=== PATIENT | male | born 1965 | race Caucasian/White ===

== ENCOUNTER 2020-02-25 11:49 | Outpatient (REF) | payer OTHER, SELFPAY ==
[2020-02-25 14:11] LABS: Estimated Average Glucose 128 mg/dL; Hemoglobin A1c % 6.1 %
[2020-02-25 15:00] LABS: Creatinine Urine 101.58 mg/dL; Microalbumin Urine < 5.0 mg/L
[2020-02-25 15:04] LABS: Alanine Aminotransferase 24 U/L (0-40); Albumin Level 4.4 g/dL (3.5-5.0); Alkaline Phosphatase 46 U/L (39-117); Anion Gap 11 (12-20); Aspartate Amino Transferase 17 U/L (5-37); Bilirubin Total 0.7 mg/dL (0.0-1.0); Blood Urea Nitrogen 17 mg/dL (9-16); Carbon Dioxide 28 mmol/L (22-29); Chloride 105 mmol/L (96-108); Estimated Glomerular Filt Rate > 60; Glucose Fasting 119 mg/dL (60-99); Potassium 4.3 mmol/l (3.3-5.1); Sodium 140 mmol/L (135-145); Total Protein 6.8 g/dL (6.5-8.0)
== END 2020-02-25 11:50 | disposition home or self-care (01) ==
LOC: HO.WFDLDS 11:49
PROVIDERS: Visit Provider Family Medicine
DX: E11.9 Type 2 diabetes mellitus without complications (principal); Z00.00 Encounter for general adult medical examination without abnormal findings; R03.0 Elevated blood-pressure reading, without diagnosis of hypertension
CPT/HCPCS: 80053; 82043; 83036

== ENCOUNTER 2020-03-15 08:56 | Outpatient (REF) | payer OTHER, SELFPAY ==
--- NOTE | 2020-03-15 09:00 | US_ITS ---
EXAMINATION: US RETROPERITONEAL LIMITED (RENAL ONLY) CLINICAL INFORMATION: Cyst of kidney.. COMPARISON: None TECHNIQUE: Sonographic evaluation of the kidneys. FINDINGS: RIGHT KIDNEY: 12.2 x 5.8 x 6.3 cm (SAG x AP x TRV). The kidney is normal in size, contour, and echogenicity. Renal cortical thickness is normal. No calculi. No hydronephrosis. There are 2 upper pole simple cysts measuring 1.2 cm and 1 cm. LEFT KIDNEY: 12.3 x 7.7 x 6 cm (SAG x AP x TRV). The kidney is normal in size, contour, and echogenicity. Renal cortical thickness is normal. No calculi. No hydronephrosis. There are 2 lower pole simple cyst measuring 5 cm and 1.3 cm. Gallstones are incidentally noted. US/US renal BI IMPRESSION: Bilateral simple renal cysts. Cholelithiasis.
== END 2020-03-15 08:57 | disposition home or self-care (01) ==
LOC: HO.US 08:56
PROVIDERS: PCP Family Medicine; Visit Provider Family Medicine
DX: N28.1 Cyst of kidney, acquired (principal)
CPT/HCPCS: 76775

== ENCOUNTER 2020-06-06 09:41 | Outpatient (REF) | payer OTHER, SELFPAY | END 2020-06-06 09:42 | disposition home or self-care (01) | LOC: HO.LAB 09:41 | PROVIDERS: Visit Provider Internal Medicine | DX: Z20.822 Contact with and (suspected) exposure to COVID-19 (principal) | CPT/HCPCS: 36415; C9803; U0003; U0005 ==

== ENCOUNTER 2023-11-19 15:39 | Outpatient (AMB) | payer OTHER, SELFPAY ==
--- NOTE | 2023-11-19 15:45 | A.OFFPC_ITS ---
Vital Signs 11/19/23 15:52 Height 6 ft 2 in Weight 171 lb 2 oz BMI 22.0 BP 132/82 Blood Pressure Location Rt brachial Position Sitting Respiration 16 Pulse 90 Pulse Source Pulse Oximeter Temp 99.3 F Temp Source Oral Pulse Oximetry (%) 95 Oxygen Delivery Method Room Air Intake Visit Reasons: Re Establish Care/Annual PE Allergies No Known Allergies Allergy (Verified 11/19/23 15:48) Medication List - Last Reconciled 11/19/23 by Constantin Vázquez MD No Known Home Meds Tobacco use date assessed: 11/19/23 Dental Screening Dental Screen Date: 11/19/23 Did you have a dental visit in the last 12 months?: Yes Did you have a dental problem in the last 6 months where you did not have access to dental care?: No Was dental information given to patient?: Patient has dentist HPI Re Establish Care/Annual PE HPI Details New Patient/Re-establish Care ?? Prior PCP: Re-establishing Care? Last office visit/CPE:?2020 Acute issue(s):? Hemorrhoids Back Pain A1c today 11/19/23 7.3%. ?? 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 1. Little interest or pleasure in doing things: more than half the days 2. Feeling down, depressed, or hopeless: not at all 3. Trouble falling or staying asleep, or sleeping too much: more than half the days 4. Feeling tired or having little energy: more than half the days 5. Poor appetite or overeating: not at all 6. Feeling bad about yourself - or that you are a failure or have let yourself or your family down: not at all 7. Trouble concentrating on things, such as reading the newspaper or watching television: not at all 8. Moving or speaking so slowly that other people could have noticed. Or the opposite - being so fidgety or restless that you have been moving around a lot more than usual: not at all 9. Thoughts that you would be better off or of hurting yourself in some way: not at all Total score: 6 Depression Screening Interpretation: Positive Depression Screening Done: Yes 69931 - PHQ-9 Billing: Yes Source: Developed by Drs. Howard Santos, Maylin Longo, Ben Felix and colleagues, with an educational chery from [employer]. Thrive Questionnaire Date Thrive assessed: 11/19/23 I am a: Patient What is your living situation today?: I have a steady place to live Within the past 12 months, did the food you bought not last and you didn't have the money to get more?: Never true Within the past 12 months, did you worry whether your food would run out before you got money to buy more?: Never true Do you have trouble paying for medicines?: No Do you have trouble getting transportation to medical appointments?: No Do you have trouble paying your heating and electricity bill?: No Do you have trouble taking care of your child, family member or friend?: No Do you have trouble with day-to-day activities such as bathing, preparing meals, shopping, managing finances, etc.?: No Are you currently unemployed and looking for a job?: No Are you interested in more education?: No Please select the resources that you would like help with: None Currently or been in a relationship where the following occur: No concerns reported THRIVE Score: 0 AUDIT C Alcohol Use Questionnaire (AUDIT-C) 1. How often do you have a drink containing alcohol?: Monthly or less 2. How many drinks containing alcohol do you have on a typical day when you are drinking?: 1 or 2 3. How often do you have six or more drinks on one occasion?: Never Total Score: 1 TRAVON-7 AMB Questionnaire TRAVON-7 Date TRAVON - 7 assessed: 11/19/23 Feeling nervous, anxious, or on edge: 0 = Not at all Not being able to stop or control worryin = Not at all Worrying too much about different things: 0 = Not at all Trouble relaxin = Not at all Being so restless that it is hard to sit still: 0 = Not at all Becoming easily annoyed or irritable: 0 = Not at all Feeling afraid as if something awful might happen: 0 = Not at all Total TRAVON-7 score (0-4 normal; 5-9 mild; 10-14 moderate; 15-21 severe): 0 Source: Developed by Drs. Howard Santos, Maylin Longo, Ben Felix and colleagues, with an educational chery from [employer]. TRAVON-7 Assessment Billing TRAVON-7 Assessment Tool: TRAVON-7 Assessment 08228 Review of Systems Const Denies chills, Denies fatigue, Denies fever(s), Denies headache(s) and Denies weakness ENT Denies dizziness and Denies headache(s) Card Denies dyspnea Resp Denies cough, Denies dyspnea, Denies wheezing and Denies other (shortness of breath) Musc Denies numbness and Denies tingling Neuro Denies dizziness, Denies headache(s), Denies numbness, Denies tingling and Denies weakness Psych Denies anxiety and Reports depression Endo Denies fatigue Aller/Immun Denies wheezing Physical exam (Primary Care) Vital Signs: Last Vital Signs Temp 99.3 F 11/19/23 15:52 Pulse 90 11/19/23 15:52 Resp 16 11/19/23 15:52 BP 132/82 11/19/23 15:52 Pulse Ox 95 11/19/23 15:52 Oxygen Delivery Method Room Air 11/19/23 15:52 BMI result Body Mass Index 22.0 Tobacco/Smoking Status: Tobacco use Status Tobacco use date assessed 11/19/23 11/19/23 15:56 Patient Tobacco Use Status Former Tobacco user 11/19/23 15:56 e-Cigarette/Vaping Use Never Used 11/19/23 15:56 PHQ-9: PHQ-9 Score PHQ-9: Total score 6 11/19/23 16:03 Depression Screening Interpretation: Positive Thrive Assessment: Date of Thrive Assessment Date Thrive assessed 11/19/23 11/19/23 15:56 Currently or been in a relationship where the following occur: No concerns reported Const General: well developed; No acute distress Nutritional Appearance: well nourished Orientation/consciousness: patient oriented x3 [facility] Head: Yes normocephalic and Yes atraumatic Eyes General: appearance normal, both eyes and all related structures Pupils: Equal, round and reactive pupils present EOM: EOMs intact bilaterally Resp Effort & Inspection: normal respiratory effort Auscultation: clear to auscultation bilaterally Cardio Rate: regular rate Rhythm: regular rhythm Heart sounds: S1 normal heart sound present, S2 normal heart sound present, no gallops, no murmurs and no rubs Neuro General: patient oriented x3 and gait normal Cranial nerves: Yes Equal, round and reactive pupils present Psych Affect: normal affect Assessment and Plan Assessment & Plan (1) Diabetes type 2, controlled: Code(s): E11.9 - Type 2 diabetes mellitus without complications Plan: A1c?now?7.3% Patient?would?like?to?work?lifestyle?changes. We?agreed?that?if?A1c?is?not?improved?at?next?visit?we?should?discuss?m edications?such?as?metformin.??Briefly?discussed?metformin?today. (2) Spinal stenosis, lumbar region with neurogenic claudication: Code(s): M48.062 - Spinal stenosis, lumbar region with neurogenic claudication Plan: Ongoing?low?back?pain?with?neurogenic?claudication?and?radiculitis Will?start?meloxicam We?discussed?that?if?he?is?still?having?difficulty?he?should?consider?a?referral ?to?pain?management Have?use?short?courses?of?opioid?in?the?past. No?recent?imaging Will?follow-up?at?next?visit (3) Mild depression: Code(s): F32.A - Depression, unspecified Plan: PHQ-9?shows?mild?depressive?symptoms.??No?SI?by?PHQ-9 A?we?can?follow?this (4) Hemorrhoid: Code(s): K64.9 - Unspecified hemorrhoids Plan: Large?hemorrhoid?and?patient?has?a?discomfort?and?drainage Referred?to?general?surgery (5) Laboratory exam ordered as part of routine general medical examination: Code(s): Z00.00 - Encounter for general adult medical examination without abnormal findings Plan: Check?labs Orders: Orders Prostate Specific Antigen Scr Today Z12.5 - Encounter for screening for malignant neoplasm of prostate Comprehensive [place]. Panel Fast Today Z00.00 - Encounter for general adult medical examination without abnormal findings Complete Blood Count Auto Diff Today Z00.00 - Encounter for general adult medical examination without abnormal findings Microalbumin, Random (w Creat) Today I10 - Essential (primary) hypertension Lipid Panel Today Z00.00 - Encounter for general adult medical examination without abnormal findings UA and rflx microscopic Today Z00.00 - Encounter for general adult medical examination without abnormal findings TSH reflex Free T4 Today Z00.00 - Encounter for general adult medical examination without abnormal findings Referrals General Surgery Referral K64.9 - Unspecified hemorrhoids Coding Level of Care Code Est Pt Level 4 (26882) Diagnoses Diabetes type 2, controlled E11.9 Spinal stenosis, lumbar region with neurogenic claudication M48.062 Mild depression F32.A Hemorrhoid K64.9 Laboratory exam ordered as part of routine general medical examination Z00.00 Additional Codes TRAVON-7 Assessment Billing - TRAVON-7 Assessment Tool: TRAVON-7 Assessment 49526 ([id number])
[2023-11-19 15:52] VITALS: BP 132/82; PULSE 90; RESP 16; TEMP 37.4; O2SAT 95; BMI 22.0
== END 2023-11-19 16:30 | disposition home or self-care (01) ==
PROVIDERS: PCP Family Medicine; Visit Provider Family Medicine
DX: E11.9 Type 2 diabetes mellitus without complications (principal); M48.062 Spinal stenosis, lumbar region with neurogenic claudication; F32.A Depression, unspecified; K64.9 Unspecified hemorrhoids
CPT/HCPCS: 99214

== ENCOUNTER 2023-12-03 13:56 | Outpatient (AMB) | payer OTHER, SELFPAY ==
--- NOTE | 2023-12-03 13:57 | A.OFFVIS_ITS ---
Vital Signs 12/03/23 14:03 Height 6 ft 2 in Weight 233 lb BMI 29.9 BP 159/80 H Blood Pressure Location Rt brachial Position Sitting Pulse 88 Intake Visit Reasons: Hemorrhoids Intake Note: Patient referred by pcp Dr. Vzáquez for hemorrhoids. Present for 1yr Patient c/o: irritated, bothersome. Quill Buncher And Sorter Required: No Accompanied by: Self / Same As Patient Allergies No Known Allergies Allergy (Verified 12/03/23 14:01) HPI Comments Details: Patient presents for evaluation of symptomatic hemorrhoids. It has been going on for few years time he has had bleeding and swelling. He has not had much pain. Patient otherwise has regular bowel habits. He has not noticed any change in the caliber stool. He has no other issues regarding energy, weight, or appetite. He has never had colonoscopy however. 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 Rectal exam demonstrates a very large external hemorrhoid. Rectal exam demonstrated no obvious masses, prostate enlarged and smooth. No stool for guaiac was available. Assessment & Plan Assessment & Plan (1) Hemorrhoid: Code(s): K64.9 - Unspecified hemorrhoids Category: Surgical Plan Risks, benefits, alternatives of hemorrhoidectomy and proctoscopy were reviewed with the patient and included but not limited to bleeding, infection, recurrence, numbness, pain, scarring, incontinence the patient wished to proceed. Once the above-mentioned issue has been resolved. I recommended the patient undergo formal colonoscopy. Patient states that his medical doctors also been strongly encouraged him to do so. This will be addressed after the above-mentioned procedure has been completed and the patient is fully convalesced. Coding Level of Care Code New Pt Level 5 (24952) Diagnoses Hemorrhoid K64.9
[2023-12-03 14:03] VITALS: BP 159/80; PULSE 88; BMI 29.9
== END 2023-12-03 14:39 | disposition home or self-care (01) ==
PROVIDERS: PCP Family Medicine; Referring Provider Family Medicine; Visit Provider Surgery
DX: K64.9 Unspecified hemorrhoids (principal)
CPT/HCPCS: 99204

== ENCOUNTER → 2023-12-03 13:56 | Outpatient (BNVA) | payer OTHER, SELFPAY | PROVIDERS: PCP Family Medicine; Referring Provider Family Medicine; Visit Provider Surgery ==

== ENCOUNTER 2024-02-06 06:48 | Day surgery (SDC) | payer OTHER, SELFPAY ==
[2024-02-04 09:39] VITALS: BMI 22.0
--- NOTE | 2024-02-05 08:35 | HO.ANESPROP2 ---
Documented by User: Elsy Kohler NP 02/05/24 08:36 HPI - Anesthesia Eval Consult details Narrative: 58yo M for Proctoscopy,Hemorrhoidectomy DM: Per 10/2023 PCP visit, pt will attempt to bring A1C down to <7% before next visit with diet control only. If unable to meet goal, will start on metformin. PMFSH Active Problems Active Problems: All Active Problems Hemorrhoid (Acute) Mild depression (Acute) Laboratory exam ordered as part of routine general medical examination (Acute) Left knee pain (Acute) Renal cyst (Acute) Diabetes type 2, controlled (Acute) Cyst of kidney, acquired (Acute) Unsteadiness on feet (Acute) Right leg weakness (Acute) Spinal stenosis, lumbar region with neurogenic claudication (Acute) Past Medical History Medical History (Updated 02/05/24 @ 09:20 by Janay Phillips RN) Cough (02/05/24) Unsteady gait Diabetes Renal cyst Depression Left knee pain Right leg weakness Spinal stenosis Surgical History Surgical History (Updated 02/05/24 @ 09:14 by Janay Phillips RN) Hx of bilateral cataract extraction Social History Social History (Updated 02/05/24 @ 09:14 by Janay Phillips RN) Household Members: Family Housing: House Are you a primary account executive healthcare to a significant other at home: No Do you presently have visiting nurse or other home services: No Patient Tobacco Use Status: Former Tobacco user Tobacco use type: Cigarette Cigarette Packs Per Day: 0.5 Years Smoked: 30 Smoked in Last 30 Days: No e-Cigarette/Vaping Use: Never Used Second Hand Smoke Exposure: No Use of substances other than those prescribed or required for medical reasons: Yes Substance Use Type: Marijuana Substance Use Type Other:: edible Substance Use Frequency: Occasionally Have you been hit, kicked, punched, or otherwise hurt by someone within the past year? 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 Current occupational exposures/hazards: No Cognitive needs: No Hearing needs: No Vision needs: No Meds Allergies Allergy/AdvReac Type Severity Reaction Status Date / Time No Known Allergies Allergy Verified 02/06/24 07:04 Home Medications ?Medication ?Instructions ?Recorded ?Confirmed ?Last Taken ?Type Miralax 02/05/24 02/05/24 02/05/24 History Exam Height,Weight and Vital Signs: Height 6 ft 2 in Weight 77.621 kg Assessment and Plan Assessment Anesthesia Assessment: Chart Reviewed Documented by User: Barak Larios MD 02/06/24 08:32 [facility] Past Medical History Medical History (Updated 02/05/24 @ 09:20 by Janay Phillips RN) Cough (02/05/24) Unsteady gait Diabetes Renal cyst Depression Left knee pain Right leg weakness Spinal stenosis Family History Family history of problems with anesthesia: No Surgical History Surgical History (Updated 02/05/24 @ 09:14 by Janay Phillips RN) Hx of bilateral cataract extraction History of Problems with Anesthesia: No Social History Social History (Updated 02/05/24 @ 09:14 by Janay Phillips RN) Household Members: Family Housing: House Are you a primary account executive healthcare to a significant other at home: No Do you presently have visiting nurse or other home services: No Patient Tobacco Use Status: Former Tobacco user Tobacco use type: Cigarette Cigarette Packs Per Day: 0.5 Years Smoked: 30 Smoked in Last 30 Days: No e-Cigarette/Vaping Use: Never Used Second Hand Smoke Exposure: No Use of substances other than those prescribed or required for medical reasons: Yes Substance Use Type: Marijuana Substance Use Type Other:: edible Substance Use Frequency: Occasionally Have you been hit, kicked, punched, or otherwise hurt by someone within the past year? 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 Current occupational exposures/hazards: No Cognitive needs: No Hearing needs: No Vision needs: No Meds Allergies Allergy/AdvReac Type Severity Reaction Status Date / Time No Known Allergies Allergy Verified 02/06/24 07:04 Home Medications ?Medication ?Instructions ?Recorded ?Confirmed ?Last Taken ?Type Miralax 02/05/24 02/05/24 02/05/24 History Exam Airway Mallampati Class: I TM Dist: <=3cm Neck ROM: Full Loose/Missing/Broken Teeth: No Heart: ok Lungs: ok Assessment and Plan Assessment Anesthesia Assessment: Anesthesia Plan Discussed Final Anesthetic Review Family History of Problems with Anesthesia: No History of Problems with Anesthesia: No NPO: Yes ASA Class: II Final Preanesthetic Review: No Changes in Pt Med Stat, Meds/Allgs Chart Reviewed, Consent Obtained/Reviewed and Anes Risks/Benef Reviewed Patient Risk: Intermediate Procedure Risk: Low Anesthetic Plan Anesthetic Plan: GA and Agree w/ Assess. and Plan Disposition: Standard PACU
[2024-02-05 09:16] VITALS: BMI 29.5
--- NOTE | 2024-02-05 09:20 | MHC.SHP ---
Pre-Procedural Eval Section A - 24 Hr Update-Section A only Date of Service: 02/06/24 The patient is an INPATIENT: No Changes since office visit: No Cold of Flu in the past 2 weeks, No New Medical Problems, No Changes in Medication and No Patient answered all questions Section B - Complete if H&P > 30 days Chief Complaint: Unspecified hemorrhoids Allergies: Allergies Allergy/AdvReac Type Severity Reaction Status Date / Time No Known Allergies Allergy Verified 02/05/24 09:15 Review of Systems Sugical H&P ROS: Negative: Constitution, Cardiovascular, Respiratory, Neurological, Psychiatric, Hem-Onc, Allergic/Immunologic, Gastrointestinal, Genitourinary, Musculoskeletal, Integumentary, Endocrine and Eyes/Ears/Nose/Throat Exam Surgical H&P Exam: Normal: HEENT, Normal: Heart, Normal: Lungs, Normal: Extremities, Normal: Abdomen, Normal: Skin and Normal: Neurological Plan I have reviewed the history and physical and performed a pertinent physical examination on my patient. No changes have occurred unless specified. Time Spent With Patient Time: Total time managing care of this patient today ____ minutes.
[2024-02-06 07:06] VITALS: BMI 29.1
[2024-02-06 07:28] LABS: Glucose, Whole Blood 205 mg/dL (60-115)
[2024-02-06] MEDS: Lactated Ringers 1,000 ML 100 ML IVCONT (07:40)
[2024-02-06 08:00] VITALS: BP 136/91; PULSE 90; RESP 14; TEMP 36.3; O2SAT 97
--- NOTE | 2024-02-06 09:04 | P.OP_ITS ---
Operative Note Operative Note Date of Service: 02/06/24 Narrative: Preoperative diagnosis: [] Symptomatic large internal and external hemorrhoids Postop diagnosis: [] The same Procedure [] hemorrhoidectomy internal and external Surgeon: [] Param Staple Shear Operator: [] Type of Anesthesia: [] LMA Indication for surgery: [] Patient has a massive 7 o'clock position external with associated internal hemorrhoid and smaller external and internal hemorrhoids on the 4 o'clock position lithotomy Findings: [] Patient brought to the operating room, placed on operative table in supine position, after an adequate level of LMA anesthesia was induced, the patient's anorectal area was prepped and draped in usual sterile fashion. Using ligature device, double firing of the massive left lower quadrant hemorrhoid was sequentially performed and specimen sent to pathology. Wound defect was cl osed using running locking 2-0 chromic suture. Smaller right lower quadrant hemorrhoids were similarly excised with double firing of ligature device. Wounds were irrigated, secured hemostasis, infiltrated with 0.5% Marcaine/1% lidocaine, sterile dressing followed by ABD pad and mesh underpants were placed. Sponge, needle, and instrument counts were reported correct. Patient tolerated the procedure well and emerged from anesthesia stable condition. EBL minimal
[2024-02-06 09:13] VITALS: BP 144/78; PULSE 82; RESP 18; TEMP 36.1; O2SAT 93
[2024-02-06 09:18] VITALS: BP 119/74; PULSE 80; RESP 18; O2SAT 94
[2024-02-06 09:23] VITALS: BP 147/90; PULSE 81; RESP 18; O2SAT 95
[2024-02-06 09:28] VITALS: BP 131/75; PULSE 79; RESP 18; O2SAT 95
[2024-02-06] MEDS: oxyCODONE HCl Immed Release 5 MG TABLET PO (09:34)
[2024-02-06 09:43] VITALS: BP 124/80; PULSE 79; RESP 16; TEMP 36.1; O2SAT 96
== END 2024-02-06 10:21 | disposition home or self-care (01) ==
PROVIDERS: PCP Family Medicine; Visit Provider Surgery
PROC: (CPT 46946; principal; 2024-02-06 08:40)
DX: K64.8 Other hemorrhoids (principal); K64.4 Residual hemorrhoidal skin tags; Z87.891 Personal history of nicotine dependence; E11.9 Type 2 diabetes mellitus without complications; Z79.899 Other long term (current) drug therapy
CPT/HCPCS: 46946; 82947; 88304; J0690; J2003; J2704; J2795; J3010

== ENCOUNTER → 2024-02-06 06:48 | Outpatient (BNV) | payer OTHER, SELFPAY | PROVIDERS: PCP Family Medicine; Visit Provider Surgery | DX: K64.8 Other hemorrhoids (principal) | CPT/HCPCS: 46255 ==

== ENCOUNTER 2024-02-19 08:57 | Outpatient (AMB) | payer OTHER, SELFPAY ==
--- NOTE | 2024-02-19 09:03 | MHC.OFFVIS ---
Intake Visit Reasons: S/P hemorrhoidectomy Intake Note: Patient here s/o hemorrhoidectomy on 02-06-24. Patient c/o: pain, oozing blood, yellowish discharge. Still taking pain meds as needed. Medical Apparatus Model Maker Required: No Accompanied by: Self / Same As Patient Allergies No Known Allergies Allergy (Verified 02/19/24 09:04) HPI Comments Details: Patient was status post hemorrhoidectomy. Anal/incisional discomfort is improving. He is tolerating diet. Having regular bowel habits. He is increasing his activity level. He has returned to work. [facility] Medical History (Updated 02/05/24 @ 09:20 by Janay Phillips, RN) Cough (02/05/24) Unsteady gait Diabetes Renal cyst Depression Left knee pain Right leg weakness Spinal stenosis Surgical History (Updated 02/19/24 @ 09:16 by Dejon Virgen MD) History of hemorrhoidectomy (02/06/24) Hx of bilateral cataract extraction Social History (Updated 02/05/24 @ 09:14 by Janay Phillips RN) Household Members: Family Housing: House Are you a primary physician assistant primary care to a significant other at home: No Do you presently have visiting nurse or other home services: No 75 years or older and lives alone: No Patient Tobacco Use Status: Former Tobacco user Tobacco use type: Cigarette Cigarette Packs Per Day: 0.5 Years Smoked: 30 e-Cigarette/Vaping Use: Never Used Second Hand Smoke Exposure: No Substance Use Type: Marijuana service: Yes Current occupational status: employed 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 Hemorrhoid wound healing uneventfully Assessment & Plan Assessment & Plan (1) Status post hemorrhoidectomy: Code(s): Z98.890 - Other specified postprocedural states; Z87.19 - Personal history of other diseases of the digestive system Category: Medical Plan Patient was to continue local wound care and analgesics as needed. All questions answered. He will otherwise follow-up p.r.n.. Coding Level of Care Code Global (53622) Diagnoses Status post hemorrhoidectomy Z98.890; Z87.19
== END 2024-02-19 09:09 | disposition home or self-care (01) ==
PROVIDERS: PCP Family Medicine; Visit Provider Surgery
DX: Z98.890 Other specified postprocedural states (principal); Z87.19 Personal history of other diseases of the digestive system
CPT/HCPCS: 99024

== ENCOUNTER → 2024-02-19 08:57 | Outpatient (BNVA) | payer OTHER, SELFPAY | PROVIDERS: PCP Family Medicine; Visit Provider Surgery ==

== ENCOUNTER 2024-05-27 09:02 | Outpatient (REF) | payer OTHER, SELFPAY ==
[2024-05-27 11:24] LABS: Appearance Urine Clear; Color Urine Yellow; Glucose Urine UA Negative (Negative); Leukocyte Esterase Urine Negative (Negative); Nitrite Urine Negative (Negative); PH 5.5 (5.0-9.0); Urine Blood Negative (Negative); Urine Ketones Negative (Negative); Urine Protein Negative (Neg-Trace)
[2024-05-27 11:36] LABS: MANUAL DIFF FLAG NO
[2024-05-27 11:42] LABS: Basophils Absolute Auto 0.1 X10*3/uL (0.0-0.2); Basophils Percent Auto 0.7 % (0-2); Eosinophils Absolute Auto 0.1 X10*3/uL (0.0-0.4); Hematocrit 42.4 % (42.0-52.0); Hemoglobin 14.8 g/dl (14.0-18.0); Imm Gran Abs Auto 0.02 X10*3/uL (0.00-0.03); Imm Gran Pct Auto 0.3 % (0.0-0.4); Lymphocytes Absolute Auto 1.3 X10*3/uL (1.2-4.9); Mean Corpuscular HGB Conc 34.9 g/dl (31.0-36.0); Mean Platelet Volume 8.7 fL (9.4-12.4); Monocytes Absolute Auto 0.5 X10*3/uL (0.1-1.2); Monocytes Percent Auto 7.4 % (2-11); Neutrophils Percent Auto 70.6 % (45-73); Platelet Count 275 X10*3/uL (160-400); Red Blood Count 4.93 X10*6/uL (4.60-5.80); White Blood Count 7.1 X10*3/uL (4.8-10.8)
[2024-05-27 12:34] LABS: Alanine Aminotransferase 42 U/L (0-40); Albumin Level 4.3 g/dL (3.5-5.0); Alkaline Phosphatase 55 U/L (39-117); Anion Gap 11 (12-20); Aspartate Amino Transferase 28 U/L (5-37); Bilirubin Total 0.3 mg/dL (0.0-1.0); Blood Urea Nitrogen 13 mg/dL (9-16); Calcium 9.3 mg/dL (8.4-10.2); Carbon Dioxide 23 mmol/L (22-29); Chloride 106 mmol/L (96-108); Cholesterol 197 mg/dL (<200); Estimated Glomerular Filt Rate > 60; Glucose Fasting 213 mg/dL (60-99); HDL Cholesterol 41 mg/dL (>40); LDL Cholesterol Calculated 144 mg/dL (<100); Potassium 4.2 mmol/L (3.3-5.1); Sodium 136 mmol/L (135-145); Triglycerides 61 mg/dL (<150)
[2024-05-27 12:43] LABS: Prostate Specific Antigen Scr 1.53 ng/mL (<0.05-4.0)
[2024-05-27 12:46] LABS: Creatinine Urine 239.13 mg/dL; Microalbum/Creatinine Ratio Ur 7.9 ug/mg cr (<30)
== END 2024-05-27 09:03 | disposition home or self-care (01) ==
LOC: HO.WFDLDS 09:02
PROVIDERS: Visit Provider Family Medicine
DX: Z00.00 Encounter for general adult medical examination without abnormal findings (principal); I10 Essential (primary) hypertension; Z12.5 Encounter for screening for malignant neoplasm of prostate
CPT/HCPCS: 36415; 80053; 80061; 81003; 82043; 82570; 84153; 84443; 85025

== ENCOUNTER 2024-06-02 11:39 | Outpatient (AMB) | payer OTHER, SELFPAY ==
--- NOTE | 2024-06-02 11:46 | A.OFFPC_ITS ---
Vital Signs 06/02/24 11:54 Height 6 ft 2 in Weight 231 lb BMI 29.7 BP 128/80 Blood Pressure Location Rt brachial Position Sitting Respiration 16 Pulse 90 Pulse Source Pulse Oximeter Temp 98.3 F Temp Source Oral Pulse Oximetry (%) 96 Oxygen Delivery Method Room Air Intake Visit Reasons: follow up a1c/ labs Intake Note: patient here for follow up on AIC/ labs [place] Worker Required: No Allergies No Known Allergies Allergy (Verified 06/02/24 11:52) Tobacco use date assessed: 06/02/24 Dental Screening Dental Screen Date: 06/02/24 Did you have a dental visit in the last 12 months?: Yes Did you have a dental problem in the last 6 months where you did not have access to dental care?: No Was dental information given to patient?: Patient has dentist HPI follow up a1c/ labs HPI Details 58 y/o male presents to f/u diabetes. Pt stated he had wanted to trial a better diet. A1c today 06/02/24 7.8%, which worsened from 7.3%. Labs drawn 05/27/24. Reviewed labs with pt. Elevated ALT of 42. Triglycerides 61. TC 197. LDL 144. HDL 41. PSA 1.53. PFSH Medical History (Updated 06/02/24 @ 12:24 by Randy Brooks) Cough (02/05/24) Unsteady gait Diabetes Renal cyst Depression Left knee pain Right leg weakness Spinal stenosis Surgical History (Updated 02/19/24 @ 09:16 by Dejon Virgen MD) History of hemorrhoidectomy (02/06/24) Hx of bilateral cataract extraction Social History (Updated 02/05/24 @ 09:14 by Janay Phillips RN) Household Members: Family Housing: House Are you a primary wound care center consultant to a significant other at home: No Do you presently have visiting nurse or other home services: No 75 years or older and lives alone: No Patient Tobacco Use Status: Former Tobacco user Tobacco use type: Cigarette Cigarette Packs Per Day: 0.5 Years Smoked: 30 e-Cigarette/Vaping Use: Never Used Second Hand Smoke Exposure: No Substance Use Type: Marijuana service: Yes Current occupational status: employed 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 1. Little interest or pleasure in doing things: not at all 2. Feeling down, depressed, or hopeless: not at all 3. Trouble falling or staying asleep, or sleeping too much: more than half the days 4. Feeling tired or having little energy: more than half the days 5. Poor appetite or overeating: not at all 6. Feeling bad about yourself - or that you are a failure or have let yourself or your family down: not at all 7. Trouble concentrating on things, such as reading the newspaper or watching television: not at all 8. Moving or speaking so slowly that other people could have noticed. Or the opposite - being so fidgety or restless that you have been moving around a lot more than usual: not at all 9. Thoughts that you would be better off or of hurting yourself in some way: not at all Total score: 4 Source: Developed by Drs. Howard Santos, Maylin Longo, Ben Felix and colleagues, with an educational chery from [employer]. Thrive Questionnaire Date Thrive assessed: 11/19/23 I am a: Patient What is your living situation today?: I have a steady place to live Within the past 12 months, did the food you bought not last and you didn't have the money to get more?: Never true Within the past 12 months, did you worry whether your food would run out before you got money to buy more?: Never true Do you have trouble paying for medicines?: No Do you have trouble getting transportation to medical appointments?: No Do you have trouble paying your heating and electricity bill?: No Do you have trouble taking care of your child, family member or friend?: No Do you have trouble with day-to-day activities such as bathing, preparing meals, shopping, managing finances, etc.?: Yes Are you currently unemployed and looking for a job?: No Are you interested in more education?: No Please select the resources that you would like help with: None Currently or been in a relationship where the following occur: No concerns reported THRIVE Score: 0 AUDIT C Alcohol Use Questionnaire (AUDIT-C) 1. How often do you have a drink containing alcohol?: Monthly or less 2. How many drinks containing alcohol do you have on a typical day when you are drinking?: 1 or 2 3. How often do you have six or more drinks on one occasion?: Never Total Score: 1 TRAVON-7 AMB Questionnaire TRAVON-7 Date TRAVON - 7 assessed: 11/19/23 Feeling nervous, anxious, or on edge: 0 = Not at all Not being able to stop or control worryin = Not at all Worrying too much about different things: 1 = Several days Trouble relaxin = Several days Being so restless that it is hard to sit still: 0 = Not at all Becoming easily annoyed or irritable: 0 = Not at all Feeling afraid as if something awful might happen: 0 = Not at all Total TRAVON-7 score (0-4 normal; 5-9 mild; 10-14 moderate; 15-21 severe): 2 Source: Developed by Drs. Howard Santos, Maylin Longo, Ben Felix and colleagues, with an educational chery from [employer]. Review of Systems Const Denies chills, Denies fatigue, Denies fever(s), Denies headache(s) and Denies weakness ENT Denies dizziness and Denies headache(s) Card Denies dyspnea Resp Denies cough, Denies dyspnea, Denies wheezing and Denies other (shortness of breath) Musc Denies numbness and Denies tingling Neuro Denies dizziness, Denies headache(s), Denies numbness, Denies tingling and Denies weakness Psych Denies anxiety and Denies depression Endo Denies fatigue Aller/Immun Denies wheezing Physical exam (Primary Care) Vital Signs: Last Vital Signs Temp 98.3 F 06/02/24 11:54 Pulse 90 06/02/24 11:54 Resp 16 06/02/24 11:54 BP 128/80 06/02/24 11:54 Pulse Ox 96 06/02/24 11:54 Oxygen Delivery Method Room Air 06/02/24 11:54 BMI result Body Mass Index 29.7 Tobacco/Smoking Status: Tobacco use Status Tobacco use date assessed 06/02/24 06/02/24 11:58 Patient Tobacco Use Status Former Tobacco user 06/02/24 11:48 Tobacco use type Cigarette 06/02/24 11:48 e-Cigarette/Vaping Use Never Used 06/02/24 11:48 PHQ-9: PHQ-9 Score PHQ-9: Total score 4 06/02/24 12:08 Thrive Assessment: Date of Thrive Assessment Date Thrive assessed 11/19/23 06/02/24 11:48 Currently or been in a relationship where the following occur: No concerns reported Const General: well developed; No acute distress Nutritional Appearance: well nourished Orientation/consciousness: patient oriented x3 HENMT Head: Yes normocephalic and Yes atraumatic Eyes General: appearance normal, both eyes and all related structures Pupils: Equal, round and reactive pupils present EOM: EOMs intact bilaterally Resp Effort & Inspection: normal respiratory effort Neuro General: patient oriented x3 and gait normal Cranial nerves: Yes Equal, round and reactive pupils present Psych Affect: normal affect Coding Level of Care Code Est Pt Level 3 (71212) Diagnoses Diabetes E11.9 Elevated ALT measurement R74.01 Hypercholesterolemia E78.00 Back pain M54.9 Assessment & Plan Assessment & Plan (1) Diabetes: Code(s): E11.9 - Type 2 diabetes mellitus without complications Category: Medical Plan: A1c?has?climbed?to?7.8%. Poorly?controlled?diabetes.??Goal?is?less?than?7.0% Start?metformin Encouraged?diet?lower?in?sugars?and?starches.??Encouraged?we?will (2) Elevated ALT measurement: Code(s): R74.01 - Elevation of levels of liver transaminase levels Category: Medical Plan: Mildly?elevated?ALT Will?recheck?prior?to?next?visit (3) Hypercholesterolemia: Code(s): E78.00 - Pure hypercholesterolemia, unspecified Category: Medical Plan: LDL?cholesterol?is?too?high.??Goal?is?less?than?100 Work?at?a?diet?lower?in?saturated?fats?and?cholesterol Will?recheck?prior?next?visit?and?consider?medication?if?needed (4) Back pain: Code(s): M54.9 - Dorsalgia, unspecified Category: Medical Plan: History?of?spinal?stenosis?and?back?pain Pain?contract?signed?today. Will?start?tramadol.??Also?advised?NSAIDs?for?additional?pain?in?inflammation?co ntrol. Patient?will?see?pain?management?to?discuss?further?methods?of?pain?control?halina laird. Orders: Referrals Pain Management Referral M48.062 - Spinal stenosis, lumbar region with neurogenic claudication
[2024-06-02 11:54] VITALS: BP 128/80; PULSE 90; RESP 16; TEMP 36.8; O2SAT 96; BMI 29.7
== END 2024-06-02 12:43 | disposition home or self-care (01) ==
PROVIDERS: PCP Family Medicine; Visit Provider Family Medicine
DX: E11.9 Type 2 diabetes mellitus without complications (principal); R74.01 Elevation of levels of liver transaminase levels; E78.00 Pure hypercholesterolemia, unspecified; M54.9 Dorsalgia, unspecified

== ENCOUNTER → 2024-06-02 11:39 | Outpatient (BNVA) | payer OTHER, SELFPAY | PROVIDERS: PCP Family Medicine; Visit Provider Family Medicine ==

== ENCOUNTER 2024-11-02 10:37 | Outpatient (REF) | payer OTHER, SELFPAY ==
[2024-11-02 14:47] LABS: Alanine Aminotransferase 36 U/L (0-40); Albumin Level 4.4 g/dL (3.5-5.0); Alkaline Phosphatase 60 U/L (39-117); Anion Gap 12 (12-20); Aspartate Amino Transferase 27 U/L (5-37); Blood Urea Nitrogen 11 mg/dL (9-16); Calcium 9.2 mg/dL (8.4-10.2); Carbon Dioxide 26 mmol/L (22-29); Chloride 106 mmol/L (96-108); Cholesterol 222 mg/dL (<200); Estimated Glomerular Filt Rate > 60; HDL Cholesterol 45 mg/dL (>40); Potassium 4.3 mmol/L (3.3-5.1); Sodium 140 mmol/L (135-145); Total Protein 6.7 g/dL (6.5-8.0); Triglycerides 126 mg/dL (<150)
== END 2024-11-02 10:38 | disposition home or self-care (01) ==
LOC: HO.WFDLDS 10:37
PROVIDERS: Visit Provider Family Medicine
DX: E78.00 Pure hypercholesterolemia, unspecified (principal); Z00.00 Encounter for general adult medical examination without abnormal findings
CPT/HCPCS: 36415; 80053; 80061

== ENCOUNTER 2024-12-08 16:22 | Outpatient (AMB) | payer OTHER, SELFPAY ==
--- NOTE | 2024-12-08 16:21 | MHC.PC.OV ---
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: No Allergies No Known Allergies Allergy (Verified 12/08/24 16:22) Medication List - Last Reconciled 12/08/24 by Constantni Vázquez MD azithromycin (Zithromax Z-Naveed) take 500 mg today (day 1), then 250 mg for 4 days (days 2-5) PO 5 days metformin 500 mg PO DAILY 90 days naproxen 500 mg PO BID PRN 30 days tramadol 50 mg PO DAILY PRN 30 days Tobacco use date assessed: 12/08/24 Dental Screening Dental Screen Date: 12/08/24 Did you have a dental visit in the last 12 months?: Yes Did you have a dental problem in the last 6 months where you did not have access to dental care?: No Was dental information given to patient?: Patient has dentist HPI f/u diabetes & HLD HPI Details 59 y/o male presents to f/u diabetes, HLD. A1c today 12/08/24 is 8.4%. He is on metformin 500mg daily. Lipid panel drawn 11/02/24. Reviewed labs with pt. Triglycerides 126. TC 222. LDL 152. HDL 45. Ongoing complaints of back pain.He is on naproxen, tramadol. Has seen pain management in the past for back pain. [facility] Medical History (Updated 06/02/24 @ 12:24 by Randy Brooks) Cough (02/05/24) Unsteady gait Diabetes Renal cyst Depression Left knee pain Right leg weakness Spinal stenosis Surgical History (Updated 02/19/24 @ 09:16 by Dejon Virgen MD) History of hemorrhoidectomy (02/06/24) Hx of bilateral cataract extraction Social History (Updated 02/05/24 @ 09:14 by Janay Phillips RN) Household Members: Family Housing: House Are you a primary manager home healthcare to a significant other at home: No Do you presently have visiting nurse or other home services: No 75 years or older and lives alone: No Patient Tobacco Use Status: Former Tobacco user Tobacco use type: Cigarette Cigarette Packs Per Day: 0.5 Years Smoked: 30 e-Cigarette/Vaping Use: Never Used Second Hand Smoke Exposure: No Substance Use Type: Marijuana service: Yes Current occupational status: employed 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 1. Little interest or pleasure in doing things: not at all 2. Feeling down, depressed, or hopeless: not at all 3. Trouble falling or staying asleep, or sleeping too much: not at all 4. Feeling tired or having little energy: not at all 5. Poor appetite or overeating: not at all 6. Feeling bad about yourself - or that you are a failure or have let yourself or your family down: not at all 7. Trouble concentrating on things, such as reading the newspaper or watching television: not at all 8. Moving or speaking so slowly that other people could have noticed. Or the opposite - being so fidgety or restless that you have been moving around a lot more than usual: not at all 9. Thoughts that you would be better off or of hurting yourself in some way: not at all Total score: 0 Depression Screening Interpretation: Negative Depression Screening Done: Yes 98777 - PHQ-9 Billing: Yes Source: Developed by Drs. Howard Santos, Maylin Longo, Ben Felix and colleagues, with an educational chery from [employer]. Thrive Questionnaire Date Thrive assessed: 12/08/24 I am a: Patient What is your living situation today?: I have a steady place to live Within the past 12 months, did the food you bought not last and you didn't have the money to get more?: Never true Within the past 12 months, did you worry whether your food would run out before you got money to buy more?: Never true Do you have trouble paying for medicines?: No Do you have trouble getting transportation to medical appointments?: No Do you have trouble paying your heating and electricity bill?: No Do you have trouble taking care of your child, family member or friend?: No Do you have trouble with day-to-day activities such as bathing, preparing meals, shopping, managing finances, etc.?: Yes Are you currently unemployed and looking for a job?: No Are you interested in more education?: No Please select the resources that you would like help with: None Currently or been in a relationship where the following occur: No concerns reported THRIVE Score: 0 TRAVON-7 AMB Questionnaire TRAVON-7 Date TRAVON - 7 assessed: 12/08/24 Feeling nervous, anxious, or on edge: 0 = Not at all Not being able to stop or control worryin = Not at all Worrying too much about different things: 0 = Not at all Trouble relaxin = Not at all Being so restless that it is hard to sit still: 0 = Not at all Becoming easily annoyed or irritable: 0 = Not at all Feeling afraid as if something awful might happen: 0 = Not at all Total TRAVON-7 score (0-4 normal; 5-9 mild; 10-14 moderate; 15-21 severe): 0 Source: Developed by Drs. Howard Santos, Maylin Longo, Ben Felix and colleagues, with an educational chery from [employer]. TRAVON-7 Assessment Billing TRAVON-7 Assessment Tool: TRAVON-7 Assessment 47498 Review of Systems Const Denies chills, Denies fatigue, Denies fever(s), Denies headache(s) and Denies weakness ENT Denies dizziness and Denies headache(s) Card Denies dyspnea Resp Denies cough, Denies dyspnea, Denies wheezing and Denies other (shortness of breath) Musc Denies numbness and Denies tingling Neuro Denies dizziness, Denies headache(s), Denies numbness, Denies tingling and Denies weakness Psych Denies anxiety and Denies depression Endo Denies fatigue Aller/Immun Denies wheezing Physical exam (Primary Care) Vital Signs: Last Vital Signs Temp 96.8 F 12/08/24 16:25 Pulse 99 12/08/24 16:25 Resp 13 12/08/24 16:25 BP 136/73 12/08/24 16:50 Pulse Ox 98 12/08/24 16:25 Oxygen Delivery Method Room Air 12/08/24 16:25 BMI result Body Mass Index 29.3 Tobacco/Smoking Status: Tobacco use Status Tobacco use date assessed 12/08/24 12/08/24 16:29 Patient Tobacco Use Status Former Tobacco user 12/08/24 16:29 Tobacco use type Cigarette 12/08/24 16:29 e-Cigarette/Vaping Use Never Used 12/08/24 16:29 PHQ-9: PHQ-9 Score PHQ-9: Total score 0 12/08/24 16:49 Depression Screening Interpretation: Negative Thrive Assessment: Date of Thrive Assessment Date Thrive assessed 12/08/24 12/08/24 16:29 Currently or been in a relationship where the following occur: No concerns reported Const General: well developed; No acute distress Nutritional Appearance: well nourished Orientation/consciousness: patient oriented x3 HENMT Head: Yes normocephalic and Yes atraumatic Eyes General: appearance normal, both eyes and all related structures Pupils: Equal, round and reactive pupils present EOM: EOMs intact bilaterally Resp Effort & Inspection: normal respiratory effort Auscultation: clear to auscultation bilaterally Cardio Rate: regular rate Rhythm: regular rhythm Heart sounds: S1 normal heart sound present, S2 normal heart sound present, no gallops, no murmurs and no rubs Neuro General: patient oriented x3 and gait normal Cranial nerves: Yes Equal, round and reactive pupils present Psych Affect: normal affect Results AMB Hemoglobin A1c AMB Hemoglobin A1c 8.4 % Last Edit by Ramon Burleson MA on 12/08/24 16:36 Results Reviewed Results Reviewed: Laboratory Last Values Hgb A1c (Clinic) 8.4 % (4.0-6.0) H 12/08/24 16:29 Coding Level of Care Code Est Pt Level 3 (10151) Diagnoses Diabetes E11.9 Hypercholesterolemia E78.00 Back pain M54.9 Additional Codes TRAVON-7 Assessment Billing - TRAVON-7 Assessment Tool: TRAVON-7 Assessment 54741 ([id number]) PHQ-9 - 40163 - PHQ-9 Billing: Yes ([id number]) Assessment & Plan Assessment & Plan (1) Diabetes: Code(s): E11.9 - Type 2 diabetes mellitus without complications Category: Medical Plan: A1c is too high at 8.4%. Goal is less than 7% Increase metformin from 500 mg daily to 500 mg b.i.d. Decreased sugars and starches in diet (2) Hypercholesterolemia: Code(s): E78.00 - Pure hypercholesterolemia, unspecified Category: Medical Plan: LDL cholesterol is too high. Goal is less than 100 Adding atorvastatin 20 mg daily (3) Back pain: Code(s): M54.9 - Dorsalgia, unspecified Category: Medical Plan: Ongoing back pain. Tramadol is helping but still has significant pain Increasing tramadol from 50 mg daily to 75 mg daily. Changing naproxen to meloxicam 15 mg daily Continue ice and heat Avoid overdoing it? but get regular exercise such as walking. Do not take other pain medications or other opioids. Call for refills when you have about 6 pills left. Orders: Orders AMB Hemoglobin A1c Today E11.9 - Type 2 diabetes mellitus without complications Medications: New meloxicam 15 mg PO DAILY 30 tabs 2RF 30 days atorvastatin (Lipitor) 20 mg PO BEDTIME 90 tabs 3RF 90 days Changed From tramadol [facility] Verified. Partial refill on request 50 mg PO DAILY 30 days PRN 30 tabs 0RF pain M48.062 - Spinal stenosis, lumbar region with neurogenic claudication To tramadol [facility] Verified. Partial refill on request 75 mg PO DAILY PRN 30 tabs 0RF pain 30 days M48.062 - Spinal stenosis, lumbar region with neurogenic claudication From metformin 500 mg PO DAILY 90 days 90 tabs 3RF To metformin 500 mg PO BID 180 tabs 3RF 90 days Discontinued naproxen Discontinued Reason: Doctor's Order 500 mg PO BID 30 days PRN 60 tabs 2RF pain
[2024-12-08 16:25] VITALS: BP 149/81; PULSE 99; RESP 13; TEMP 36; O2SAT 98; BMI 29.3
[2024-12-08 16:50] VITALS: BP 136/73
== END 2024-12-08 17:16 | disposition home or self-care (01) ==
LOC: HO.HMCFM 16:22
PROVIDERS: PCP Family Medicine; Visit Provider Family Medicine
DX: E11.9 Type 2 diabetes mellitus without complications (principal); E78.00 Pure hypercholesterolemia, unspecified; M54.9 Dorsalgia, unspecified

== ENCOUNTER → 2024-12-08 16:22 | Outpatient (BNVA) | payer OTHER, SELFPAY | PROVIDERS: PCP Family Medicine; Visit Provider Family Medicine | DX: E11.9 Type 2 diabetes mellitus without complications (principal); E78.00 Pure hypercholesterolemia, unspecified; M48.062 Spinal stenosis, lumbar region with neurogenic claudication | CPT/HCPCS: 83036; 96127 ==

== ENCOUNTER 2025-03-09 09:22 | Outpatient (REF) | payer OTHER, SELFPAY ==
[2025-03-09 11:32] LABS: Alanine Aminotransferase 59 U/L (0-40); Albumin Level 4.3 g/dL (3.5-5.0); Alkaline Phosphatase 61 U/L (39-117); Anion Gap 11 (12-20); Aspartate Amino Transferase 34 U/L (5-37); Blood Urea Nitrogen 17 mg/dL (9-16); Calcium 9.4 mg/dL (8.4-10.2); Carbon Dioxide 25 mmol/L (22-29); Chloride 106 mmol/L (96-108); Cholesterol 124 mg/dL (<200); Estimated Glomerular Filt Rate > 60; HDL Cholesterol 41 mg/dL (>40); Potassium 4.1 mmol/L (3.3-5.1); Sodium 138 mmol/L (135-145); Total Protein 6.5 g/dL (6.5-8.0); Triglycerides 45 mg/dL (<150)
== END 2025-03-09 09:23 | disposition home or self-care (01) ==
LOC: HO.WFDLDS 09:22
PROVIDERS: Visit Provider Family Medicine
DX: Z00.00 Encounter for general adult medical examination without abnormal findings (principal); E78.00 Pure hypercholesterolemia, unspecified
CPT/HCPCS: 36415; 80053; 80061

== ENCOUNTER 2025-03-15 16:23 | Outpatient (AMB) | payer OTHER, SELFPAY ==
--- NOTE | 2025-03-15 16:34 | A.OFFPC_ITS ---
Vital Signs 03/15/25 16:35 03/15/25 16:38 Height 6 ft 2 in Weight 223 lb 4 oz BMI 28.7 BP 140/66 H 136/68 Blood Pressure Location Lt brachial Lt brachial Position Sitting Sitting Respiration 16 Pulse 84 Pulse Source Pulse Oximeter Temp 98.5 F Temp Source Oral Pulse Oximetry (%) 94 Oxygen Delivery Method Room Air Intake Visit Reasons: f/u diabetes, lipids Intake Note: patient scheduled to discuss dm and labs Guest Experience Captain Required: No Allergies No Known Allergies Allergy (Verified 03/15/25 16:34) Medication List - Last Reconciled 03/15/25 by Constantin Vázquez MD atorvastatin 10 mg PO BEDTIME 90 days meloxicam 15 mg PO DAILY 30 days metformin 500mg (1 tab) AM and 750mg (1.5 tabs) PM orally 2 times a day; 90 days tramadol 75 mg (1.5 x 50 mg) PO DAILY PRN 30 days Tobacco use date assessed: 12/08/24 Dental Screening Dental Screen Date: 12/08/24 HPI f/u diabetes, lipids HPI Details 59 y/o male presents to f/u diabetes, li pids. Labs drawn 03/09/25. Reviewed labs with pt. Triglycerides 45. TC 124. LDL 74. HDL 41. Elevated ALT of 59. A1c today 03/15/25 is 7.5%. He is on metformin 500mg b.i.d. [facility] Medical History (Updated 03/15/25 @ 16:56 by Constantin Vázquez MD) Cough (02/05/24) Unsteady gait Diabetes Renal cyst Depression Left knee pain Right leg weakness Spinal stenosis Surgical History (Updated 02/19/24 @ 09:16 by Dejon Virgen MD) History of hemorrhoidectomy (02/06/24) Hx of bilateral cataract extraction Social History (Updated 02/05/24 @ 09:14 by Janay Phillips RN) Household Members: Family Housing: House Are you a primary overnight caregiver to a significant other at home: No Do you presently have visiting nurse or other home services: No 75 years or older and lives alone: No Patient Tobacco Use Status: Former Tobacco user Tobacco use type: Cigarette Cigarette Packs Per Day: 0.5 Years Smoked: 30 e-Cigarette/Vaping Use: Never Used Second Hand Smoke Exposure: No Substance Use Type: Marijuana service: Yes Current occupational status: employed 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 Current occupational exposures/hazards: No Cognitive needs: No Hearing needs: No Vision needs: No Questionnaire Thrive Questionnaire Date Thrive assessed: 05/26/24 I am a: Patient What is your living situation today?: I have a steady place to live Within the past 12 months, did the food you bought not last and you didn't have the money to get more?: Never true Within the past 12 months, did you worry whether your food would run out before you got money to buy more?: Never true Do you have trouble paying for medicines?: No Do you have trouble getting transportation to medical appointments?: No Do you have trouble paying your heating and electricity bill?: No Do you have trouble taking care of your child, family member or friend?: No Do you have trouble with day-to-day activities such as bathing, preparing meals, shopping, managing finances, etc.?: Yes Are you currently unemployed and looking for a job?: No Are you interested in more education?: No Please select the resources that you would like help with: None Currently or been in a relationship where the following occur: No concerns reported THRIVE Score: 0 TRAVON-7 AMB Questionnaire TRAVON-7 Date TRAVON - 7 assessed: 12/08/24 Source: Developed by Drs. Howard Santos, Maylin Longo, Ben Felix and colleagues, with an educational chery from [employer]. Review of Systems Const Denies chills, Denies fatigue, Denies fever(s), Denies headache(s) and Denies weakness ENT Denies dizziness and Denies headache(s) Card Denies dyspnea Resp Denies cough, Denies dyspnea, Denies wheezing and Denies other (shortness of breath) Musc Denies numbness and Denies tingling Neuro Denies dizziness, Denies headache(s), Denies numbness, Denies tingling and Denies weakness Psych Denies anxiety and Denies depression Endo Denies fatigue Aller/Immun Denies wheezing Physical exam (Primary Care) Vital Signs: Last Vital Signs Temp 98.5 F 03/15/25 16:35 Pulse 84 03/15/25 16:35 Resp 16 03/15/25 16:35 BP 136/68 03/15/25 16:38 Pulse Ox 94 03/15/25 16:35 Oxygen Delivery Method Room Air 03/15/25 16:35 BMI result Body Mass Index 28.7 Tobacco/Smoking Status: Tobacco use Status Tobacco use date assessed 12/08/24 03/15/25 16:40 Patient Tobacco Use Status Former Tobacco user 03/15/25 16:40 Tobacco use type Cigarette 03/15/25 16:40 e-Cigarette/Vaping Use Never Used 03/15/25 16:40 Thrive Assessment: Date of Thrive Assessment Date Thrive assessed 05/26/24 03/15/25 16:40 Currently or been in a relationship where the following occur: No concerns reported Const General: well developed; No acute distress Nutritional Appearance: well nourished Orientation/consciousness: patient oriented x3 HENMT Head: Yes normocephalic and Yes atraumatic Eyes General: appearance normal, both eyes and all related structures Pupils: Equal, round and reactive pupils present EOM: EOMs intact bilaterally Resp Effort & Inspection: normal respiratory effort Neuro General: patient oriented x3 and gait normal Cranial nerves: Yes Equal, round and reactive pupils present Psych Affect: normal affect Results AMB Hemoglobin A1c AMB Hemoglobin A1c 7.5 % Last Edit by LOKI Melgar on 03/15/25 16:44 Results Reviewed Results Reviewed: Laboratory Last Values Hgb A1c (Clinic) 7.5 % (4.0-6.0) H 03/15/25 16:42 Coding Level of Care Code Est Pt Level 4 (14022) Diagnoses Diabetes E11.9 Hypercholesterolemia E78.00 Elevated ALT measurement R74.01 Acute adjustment disorder F43.20 Assessment & Plan Assessment & Plan (1) Diabetes: Code(s): E11.9 - Type 2 diabetes mellitus without complications Category: Medical Plan: A1c improved from 8.4% to 7.5% with increase in metformin. Goal is less than 7%. Will increase metformin again He will take 500 mg a.m. and 750 mg p.m. Continue working at diabetic diet Encouraged exercise (2) Hypercholesterolemia: Code(s): E78.00 - Pure hypercholesterolemia, unspecified Category: Medical Plan: LDL cholesterol much improved and now at goal of less than 100. Will decrease atorvastatin dose from 20 mg daily to 10 mg daily (3) Elevated ALT measurement: Code(s): R74.01 - Elevation of levels of liver transaminase levels Category: Medical Plan: Mild ALT elevation Continue good hydration Will recheck this with next blood draw (4) Acute adjustment disorder: Code(s): F43.20 - Adjustment disorder, unspecified Category: Medical Plan: Acute adjustment disorder Patient's recently. He notes that he has good supports Offer therapist and patient declines. Made him aware that he can change his mind at any time Orders: Orders AMB Hemoglobin A1c Today E11.9 - Type 2 diabetes mellitus without complications Medications: Changed From atorvastatin (Lipitor) 20 mg PO BEDTIME 90 days 90 tabs 3RF To atorvastatin 10 mg PO BEDTIME 90 tabs 3RF 90 days From metformin 500 mg PO BID 90 days 180 tabs 3RF To metformin 500mg (1 tab) AM and 750mg (1.5 tabs) PM orally 2 times a day; 225 tabs 3RF 90 days
[2025-03-15 16:35] VITALS: BP 140/66; PULSE 84; RESP 16; TEMP 36.9; O2SAT 94; BMI 28.7
[2025-03-15 16:38] VITALS: BP 136/68
== END 2025-03-15 16:52 | disposition home or self-care (01) ==
LOC: HO.HMCFM 16:23
PROVIDERS: PCP Family Medicine; Visit Provider Family Medicine
DX: E11.9 Type 2 diabetes mellitus without complications (principal); E78.00 Pure hypercholesterolemia, unspecified; R74.01 Elevation of levels of liver transaminase levels; F43.20 Adjustment disorder, unspecified

== ENCOUNTER → 2025-03-15 16:23 | Outpatient (BNVA) | payer OTHER, SELFPAY | PROVIDERS: PCP Family Medicine; Visit Provider Family Medicine | DX: E11.9 Type 2 diabetes mellitus without complications (principal); E78.00 Pure hypercholesterolemia, unspecified; R74.01 Elevation of levels of liver transaminase levels; F43.20 Adjustment disorder, unspecified; Z79.84 Long term (current) use of oral hypoglycemic drugs | CPT/HCPCS: 83036 ==